=== PATIENT | female | born 1990 | race Caucasian/White ===

== ENCOUNTER 2019-07-19 19:23 | Inpatient (IN) ==
[2019-07-19 19:42] LABS: Microscopic, Urine URINE MICROSCOPIC (MICROSCOPIC)
[2019-07-19 19:47] LABS: Appearance,Urine CLEAR (Clear); Blood, Urine 1+ (Negative); Color,Urine YELLOW (Yellow); Glucose,Urine (UA) Negative (Negative); Ketones,Urine Negative (Negative); Leukocyte Esterase,Urine TRACE (Negative); PH,Urine 5.5 (5.0-8.5); Protein,Urine 2+ (Negative); Specific Gravity, Urine >= 1.030 (1.005-1.030)
[2019-07-19 19:55] LABS: Bilirubin,Urine Negative (Negative)
[2019-07-19 19:59] LABS: Basophils # 0.1 K/mm3 (0-0.2); Basophils % 0.4 % (0.1-2.0); Eosinophils # 0.1 K/mm3 (0.0-0.4); Eosinophils % 0.5 % (0.1-12.0); Hemoglobin 13.9 g/dL (12.2-16.2); Lymphocytes % 4.1 % (10-50); Mean Corpuscular HGB Conc 32.3 g/dL (31.8-35.4); Mean Corpuscular Volume 87.8 fl (81-99); Mean Platelet Volume 9.3 fl (7.4-10.4); Monocytes % 4.1 % (1.7-9.3); Neutrophils # 21.5 K/mm3 (1.8-7.8); Neutrophils % 90.9 % (37.0-80.0); Platelet Count 475 K/mm3 (142-424); Red Cell Distribution Width 13.5 % (11.5-17.5); White Blood Count 23.7 K/mm3 (4.8-10.8)
[2019-07-19 20:06] LABS: Bacteria,Urine Trace /lpf; RBC,Urine Occasional #/hpf (0-3)
--- NOTE | 2019-07-19 20:16 | Emergency Department Note ---
ED Disposition Clinical Impression: PID (acute pelvic inflammatory disease), Tubo-ovarian abscess, Peritonitis, SIRS (systemic inflammatory response syndrome), Hypokalemia Obesity Qualifiers: Obesity type: due to excess calories Obesity classification: adult class 2 (BMI 35 - 39.9) Serious obesity comorbidity presence: with serious comorbidity Body mass index: BMI 38.0-38.9 Qualified Code(s): E66.01 - Morbid (severe) obesity due to excess calories; Z68.38 - Body mass index (BMI) 38.0-38.9, adult Disposition: Admitted As Inpatient Condition on Discharge: Serious Instructions: DI for Acute Abdomen Referrals: Provider,Referral, MD [Primary Care Provider] - - Critical Care Critical Care Time: Yes Attestation: On 07/19/19, the high probability of a clinically significant, sudden or life threatening deterioration of the following system(s) required my full and direct attention, intervention and personal management. The time I documented below is in addition to time spent performing reported procedures but includes the following listed in this critical care notation. Total Critical Care Time: 90 Vital system(s) involved:: Shock (Septic) My critical care processes included: Assessment & monitoring of V/S, Initial and Re-exams, Coordinating Care, Medication Orders and management, Documentation Medical Decision Making - Medical Records Medical records reviewed: Yes: I reviewed the patient's medical records. - Luigi Inquiry Pt receiving controlled substance: No Vital Signs: 07/19/19 19:27 07/19/19 21:52 Temperature 98.6 F Temperature Source Oral Pulse Rate [Right Brachial] 137 H 129 H Respiratory Rate 20 18 Blood Pressure [Right Arm] 101/75 L 125/74 Blood Pressure Mean [Right Arm] 83 91 Blood Pressure Source [Right Arm] Automatic Cuff Automatic Cuff Blood Pressure Position [Right Arm] Sitting Sitting 02 Sat by Pulse Oximetry 97 97 Oxygen Delivery Method Room Air Room Air - Lab Data Lab results reviewed: Yes: I reviewed the patient's lab results. Lab Results 07/19/19 19:37: Urine Color Yellow, Urine Appearance Clear, Urine pH 5.5, Ur Specific Gable >= 1.030, Urine Protein 2+, Urine Glucose (UA) Negative, Urine Ketones Negative, Urine Blood 1+, Urine Nitrate Negative, Urine Bilirubin Negat gt, Urine Urobilinogen 4.0, Ur Leukocyte Esterase Trace, Urine RBC Occasional, Urine WBC 10-20, Ur Squamous Epith Cells 5-10, Urine Bacteria Trace 07/19/19 19:37: Urine HCG, Qual Negative 07/19/19 19:40: WBC 23.7 H*, RBC 4.90, Hgb 13.9, Hct 43.0, MCV 87.8, MCH 28.4, MCHC 32.3, RDW 13.5, Plt Count 475 H, MPV 9.3, Neut % (Auto) 90.9 H, Lymph % (Auto) 4.1 L, Mitchell % (Auto) 4.1, Eos % (Auto) 0.5, Baso % (Auto) 0.4, Neut # (Auto) 21.5 H, Lymph # (Auto) 1.0, Mitchell # (Auto) 1.0, Eos # (Auto) 0.1, Baso # (Auto) 0.1, Total Counted 100, Neutrophils % (Manual) 91 H, Lymphocytes % (Manual) 6 L, Monocytes % (Manual) 3, Platelet Estimate Slight increase, RBC Morphology Normal 07/19/19 20:15: C-Reactive Protein > 12.0 H, Amylase 10 L 07/19/19 20:15: ESR 90 H 07/19/19 20:15: Sodium 132 L, Potassium 2.7 L*, Chloride 94 L, Carbon Dioxide 26, Anion Gap 14.7, BUN 11, Creatinine 1.35 H, Estimated Creat Clear 96, Estimated GFR 46 L, Est GFR ( Amer) 56 L, Glucose 127 H, Calcium 8.6, Total Bilirubin 1.0, AST 44 H, ALT 44, Alkaline Phosphatase 156 H, Total Protein 7.1, Albumin 1.7 L, Globulin 5.4 H, Albumin/Globulin Ratio 0.3 L, Lipase 41 L 07/19/19 21:22: Lactate 1.6 Result diagrams: 07/19/19 19:40 07/19/19 20:15 Orders (Tests/Meds): ED MEDICATIONS Generic Name Dose Route Start Last Admin Trade Name Freq PRN Reason Stop Dose Admin Sodium Chloride 1,000 mls @ 999 mls/hr 07/19/19 19:45 07/19/19 19:43 Sod Chlor 0.9% 1000ml Bag IV 07/19/19 20:45 999 mls/hr .Q1H1M SHAUNA Administration Ertapenem 1 gm/ Sodium 50 mls @ 100 mls/hr 07/19/19 21:15 07/19/19 21:25 Chloride IV 08/02/19 21:14 100 mls/hr Q24H SHAUNA Administration Protocol Sodium Chloride 1,000 mls @ 999 mls/hr 07/19/19 22:00 07/19/19 21:52 Sod Chlor 0.9% 1000ml Bag IV 07/19/19 23:00 999 mls/hr .Q1H1M SHAUNA Administration Clindamycin Phosphate 900 mg/ 106 mls @ 100 mls/hr 07/19/19 23:15 Sodium Chloride IV 08/02/19 23:14 Q8H SHAUNA Protocol Discontinued Medications Generic Name Dose Route Start Last Admin Trade Name Freq PRN Reason Stop Dose Admin Ioversol 75 ml 07/19/19 21:59 07/19/19 22:00 Rad-Optiray 350 100ml Vial IV 07/19/19 22:00 75 ml ONCE ONE Administration Protocol Potassium Chloride 40 meq 07/19/19 20:36 07/19/19 21:28 Klor-Con 20meq Tablet PO 07/19/19 20:37 40 meq ONCE ONE Administration Sodium Chloride 10 ml 07/19/19 21:59 07/19/19 22:00 Rad-Saline Flush 10ml Syringe IV 07/19/19 22:00 10 ml ONCE ONE Administration ORDERS Category Date Time Status CT abdomen pelvis w con Stat Cat Scan 07/19/19 21:[address] abdomen pelvis wo con Stat Cat Scan 07/19/19 19:36 Taken CXR --portable [XR chest portable] Stat Exams 07/19/19 21:41 Taken Anaerobic Culture+Gram Stain Routine Micro 07/19/19 22:50 Received Blood Culture Stat Micro 07/19/19 21:22 Received Genital Culture and Gram Stain Routine Micro 07/19/19 22:50 Received Urine Culture Stat Micro 07/19/19 19:37 Received - Radiology Data #1 Image(s): Chest Image Reviewed: Yes I reviewed the patient's radiology image Preliminary Findings: Normal/NAD - CT Data CT Scan: Abdomen, Pelvis Time Received: 23:[address] Reviewed: Yes: I have viewed the radiologist's interpretation Preliminary Findings: Abnormal (see report ) - ECG Data Tracing #1 Arrhythmias present: sinus tach Ischemic changes: non-specific ST-T wave changes - Physician Consults Physician Consulted: corbin Reason -: Admission Nausea/Vomiting/Diarrhea HPI - General Chief complaint: Abdominal Pain Stated complaint: Sick for a wk,weakness Time Seen by Provider: 07/19/19 19:50 Mode of Arrival: Family Vehicle Source of Information: Patient, Medical Record Limitations: No Limitations Description of Symptoms (Recalled from ER Triage Doc. by RN): Pt states last week she thought she has the flu, reporting n/v for 2 days. She also reports having diarrhea for a couple days that has now resloved. She now reports abd pain and weakness that started today. - History of Present Illness HPI Narrative: 29 wf with no chronic illness or meds - she had iud placed by dr angulo about 2010and no prev pid and last coitus 06/11/19- about 1 week ago ill with gi illness and fever with positive sick family contacts, however she remained ill feeling with dec appetite and dec abd soreness today with vaginal odor and no rash - MD complaint: nausea, abdominal pain Onset (ago): day(s) Associated Abdominal Pain: Yes Location of pain: periumbilical Severity: severe Associated symptoms: loss of appetite - Related Data Home Medications Medication Instructions Recorded Confirmed No Known Home Medications 07/19/19 07/19/19 Allergies Allergy/AdvReac Type Severity Reaction Status Date / Time No Known Allergies Allergy Verified 07/19/19 19:35 [facility] History - Hepatitis A Screen Drug use history?: No High risk sexual behaviors?: No History of sexually transmitted infection?: No Currently employed?: No Childcare worker?: No Do you have indoor plumbing?: Yes Do you have electricity?: Yes Attestation statement:: This patient has been screened for Hepatitis A risk factors. I have reviewed the patient's past medical history: Yes - Social History Smoking Status: Current every day smoker # Packs/Day (cigarettes): 1 Alcohol Intake: never Occupational Status: unemployed Housing: house ROS Obtained: Yes All systems reviewed & no additional complaints - Constitutional Constitutional: Reports as per HPI, Reports fever(s), Reports poor appetite, Reports malaise - Eyes Eyes: Denies change in vision - ENT Ears, Nose, Mouth, and Throat: Denies sore throat - Cardiovascular Cardiovascular: Denies chest pain, Denies dyspnea - Respiratory Respiratory: No cough - Gastrointestinal Gastrointestingal: Reports: as per HPI, abdominal pain, nausea - Genitourinary Female Genitourinary: Denies abnormal vaginal bleeding, Denies vaginal discharge, Reports vaginal odor - Musculoskeletal Musculoskeletal: Denies joint pain, Denies joint swelling - Integumentary/Breasts Skin/Breast: Denies rash - Neurologic Neurologic: Denies focal weakness, Denies headache(s), Denies loss of vision, Denies seizure-like activity Physical Exam - General General appearance: alert, in no apparent distress, obese - Head Head exam: normocephalic - Eye Eye exam: Present: PERRL, EOMI. Absent: scleral icterus - ENT ENT exam: Present: mucous membranes dry - Neck Neck exam: Present: trachea midline. Absent: meningismus - Respiratory Respiratory exam: Present: normal lung sounds bilaterally. Absent: respiratory distress - Cardiovascular Cardiovascular exam: Present: regular rate. Absent: systolic murmur, rubs, gallop - Abdominal Exam Abdominal exam: Present: soft, tenderness. Absent: guarding, rebound, rigidity Abdominal tenderness: Present: suprapubic, moderate - External exam: Present: normal external exam Speculum exam: Present: vaginal discharge, other (iud string ) Bimanual exam: Present: cervical motion tenderness, adnexal tenderness - Extremities Exam Extremities exam: Present: full ROM - Neurological Exam Neurological exam: Present: alert, oriented X3, CN II-XII intact - Psychiatric Psychiatric exam: Present: normal affect - Skin Skin exam: Absent: rash
[2019-07-19 20:32] LABS: Amylase 10 U/L (25-115)
[2019-07-19 20:33] LABS: Albumin Level 1.7 gm/dL (3.4-5.0); Albumin/Globulin Ratio 0.3 (1.1-1.8); Anion Gap 14.7 mEq/L (5-15); C-Reactive Protein > 12.0 mg/dL (0.0-0.9); Calcium 8.6 mg/dL (8.5-10.1); Globulin 5.4 gm/dl (1.3-3.2); Total Protein,Serum 7.1 gm/dL (6.4-8.2)
[2019-07-19 20:42] LABS: Lymphocytes % 6 % (10-50); Monocytes % 3 % (2-9); Neutrophils % 91 % (42-76); RBC Morphology Normal; Total Cells Counted 100
--- NOTE | 2019-07-20 07:26 | Pharmacy Consult Notes ---
[facility] Pharmacy VTE Monitoring - Patient Demographics Admission date: 07/19/19 Report Date: 07/20/19 Time: 07:26 Allergies/Adverse Reactions: Patient Allergies No Known Allergies Allergy (Verified 07/19/19 19:35) Height: 1.6 m Weight: 103.476 kg Patient Problems: Current Active Problems PID (acute pelvic inflammatory disease) (Acute) Tubo-ovarian abscess (Acute) Peritonitis (Acute) SIRS (systemic inflammatory response syndrome) (Acute) Hypokalemia (Acute) Obesity (Acute) - VTE Risk Labs: VTE Related Lab Results Hgb 13.9 g/dL (12.2-16.2) 07/19/19 19:40 Hct 43.0 % (37.0-47.0) 07/19/19 19:40 Plt Count 475 K/mm3 (142-424) H 07/19/19 19:40 BUN 11 mg/dL (7-18) 07/19/19 20:15 Creatinine 1.35 mg/dL (0.55-1.02) H 07/19/19 20:15 Estimated Creat Clear 96 mL/min (50-200) 07/19/19 20:15 Was VTE Risk Assessment Performed: Yes VTE Score: 3 VTE Risk Level: Low Risk Clinical Trial Participant: No - Prophylaxis VTE Prophylaxis Ordered?: Yes Types of VTE Prophylaxis: TEDS Knee High
[2019-07-20 07:34] LABS: Eosinophils % 0.1 % (0.1-12.0)
[2019-07-20 07:38] LABS: Anion Gap 16.9 mEq/L (5-15); Calcium 8.4 mg/dL (8.5-10.1)
[2019-07-20 07:41] LABS: Basophils % 0.2 % (0.1-2.0); Hematocrit 38.4 % (37.0-47.0); INR 1.5 (0.9-1.1); Lymphocytes # 1.3 K/mm3 (0.7-4.5); Lymphocytes % 4.8 % (10-50); Mean Corpuscular HGB Conc 32.6 g/dL (31.8-35.4); Mean Corpuscular Volume 87.4 fl (81-99); Mean Platelet Volume 9.4 fl (7.4-10.4); Monocytes % 3.6 % (1.7-9.3); Neutrophils # 24.3 K/mm3 (1.8-7.8); Neutrophils % 91.3 % (37.0-80.0); Platelet Count 448 K/mm3 (142-424); Prothrombin Time 15.3 seconds (9.4-11.8); Red Cell Distribution Width 13.5 % (11.5-17.5); White Blood Count 26.6 K/mm3 (4.8-10.8)
[2019-07-20 07:44] LABS: Hemoglobin 12.5 g/dL (12.2-16.2)
--- NOTE | 2019-07-20 08:25 | History & Physical Report ---
*Admission Date: 07/19/19 *Chief complaint: Lower abdominal pain. Pelvic abscess possible tubo-ovarian abscess *History of present illness: She is a 29-year-old lady who has a copper IUD in place. She has a 1 week history of lower abdominal pain. She says it is mostly on the left side. She had a fever 1 day she said. She had increasing lower abdominal pain as result of that she came to the ER. CT scan shows multiple loculated areas consistent with tubo-ovarian abscess. There is also significant free fluid possibly related to the inflammation related to this. She denies any new partners. She is . She says that her has had no new partners. She is a smoker and smokes a pack a day. She does not take any medications. [facility] History I have reviewed the patient's past medical history: Yes *Have you ever received a pneumonia vaccine?: No *Have you received a flu vaccine this season?: No Other Surgeries: Yes: - *Social History Educational Level: Attended High School Smoking Status: Current every day smoker Tobacco Type: cigarettes # Packs/Day (cigarettes): 1 Alcohol Intake: never *Occupational Status:: unemployed Housing: house *Travel in the last 8 weeks: None Family Hx:: Anemia, Asthma, Cancer, Coronary Artery Disease, Diabetes, Heart Attack, Hyperlipidemia, Hypertension, Stroke, Thyroid Disorder Review of Systems - Review of Systems Review of systems:: pertinent systems reviewed and negative unless documented below - *Neurologic Denies localized weakness, Denies headache(s), Denies loss of vision, Denies seizure-like activity Meds Home Medications Medication Instructions Recorded Confirmed Type No Known Home Medications 07/19/19 07/19/19 History Allergies Allergy/AdvReac Type Severity Reaction Status Date / Time No Known Allergies Allergy Verified 07/19/19 19:35 Exam Vital signs and Labs for Last 24 Hours: Temp Pulse Resp BP Pulse Ox 98.2 F 95 H 18 129/64 96 07/20/19 08:00 07/20/19 08:00 07/20/19 08:00 07/20/19 08:00 07/20/19 08:00 Laboratory Results - last 24 hr 07/19/19 19:37: Urine Color Yellow, Urine Appearance Clear, Urine pH 5.5, Ur Specific Martin >= 1.030, Urine Protein 2+, Urine Glucose (UA) Negative, Urine Ketones Negative, Urine Blood 1+, Urine Nitrate Negative, Urine Bilirubin Negative, Urine Urobilinogen 4.0, Ur Leukocyte Esterase Trace, Urine RBC Occasional, Urine WBC 10-20, Ur Squamous Epith Cells 5-10, Urine Bacteria Trace 07/19/19 19:37: Urine HCG, Qual Negative 07/19/19 19:40: WBC 23.7 H*, RBC 4.90, Hgb 13.9, Hct 43.0, MCV 87.8, MCH 28.4, MCHC 32.3, RDW 13.5, Plt Count 475 H, MPV 9.3, Neut % (Auto) 90.9 H, Lymph % (Auto) 4.1 L, Morrow % (Auto) 4.1, Eos % (Auto) 0.5, Baso % (Auto) 0.4, Neut # (Auto) 21.5 H, Lymph # (Auto) 1.0, Morrow # (Auto) 1.0, Eos # (Auto) 0.1, Baso # (Auto) 0.1, Total Counted 100, Neutrophils % (Manual) 91 H, Lymphocytes % (Manual) 6 L, Monocytes % (Manual) 3, Platelet Estimate Slight increase, RBC Morphology Normal 07/19/19 20:15: C-Reactive Protein > 12.0 H, Amylase 10 L 07/19/19 20:15: ESR 90 H 07/19/19 20:15: Sodium 132 L, Potassium 2.7 L*, Chloride 94 L, Carbon Dioxide 26, Anion Gap 14.7, BUN 11, Creatinine 1.35 H, Estimated Creat Clear 96, Estimated GFR 46 L, Est GFR ( Amer) 56 L, Glucose 127 H, Calcium 8.6, Total Bilirubin 1.0, AST 44 H, ALT 44, Alkaline Phosphatase 156 H, Total Protein 7.1, Albumin 1.7 L, Globulin 5.4 H, Albumin/Globulin Ratio 0.3 L, Lipase 41 L 07/19/19 21:22: Lactate 1.6 07/20/19 07:03: WBC 26.6 H*, RBC 4.40, Hgb 12.5 D, Hct 38.4, MCV 87.4, MCH 28.5, MCHC 32.6, RDW 13.5, Plt Count 448 H, MPV 9.4, Neut % (Auto) 91.3 H, Lymph % (Auto) 4.8 L, Morrow % (Auto) 3.6, Eos % (Auto) 0.1, Baso % (Auto) 0.2, Neut # (Auto) 24.3 H, Lymph # (Auto) 1.3, Morrow # (Auto) 1.0, Eos # (Auto) 0.0, Baso # (Auto) 0.0 07/20/19 07:03: PT 15.3 H, INR 1.50 H 07/20/19 07:03: Sodium 136, Potassium 2.9 L*, Chloride 97 L, Carbon Dioxide 25, Anion Gap 16.9 H, BUN 15 D, Creatinine 1.19 H, Estimated Creat Clear 113, Estimated GFR 53 L, Est GFR ( Amer) 64, Glucose 116 H, Calcium 8.4 L I & O for Last 24 hours: Intake & Output 07/17/19 07/18/19 07/19/19 07/20/19 11:59 11:59 11:59 11:59 Intake Total 0 / 0 Balance 0 / 0 Weight 228 lb 2.008 oz Microbiology Reports for the Last 24 Hours: Microbiology 07/19/19 22:50 Vaginal - Vaginal Gram Stain - Final 07/19/19 22:50 Vaginal - Vaginal - Final Not Reportable 07/19/19 22:50 Vaginal - Vaginal - Final Not Reportable 07/19/19 22:50 Vaginal - Vaginal - Final Not Reportable 07/19/19 22:50 Vaginal - Vaginal - Final Not Reportable 07/19/19 22:50 Vaginal - Vaginal - Final Not Reportable 07/19/19 22:50 Vaginal - Vaginal - Final Not Reportable 07/19/19 22:50 Vaginal - Vaginal - Final Not Reportable 07/19/19 22:50 Vaginal - Vaginal - Final Not Reportable 07/19/19 22:50 Vaginal - Vaginal - Final Not Reportable 07/19/19 22:50 Vaginal - Vaginal Gram Stain Comment - Final Not Reportable 07/19/19 22:50 Vaginal - Vaginal Wet Prep - Final - Constitutional no acute distress - *Routine HEENT Exam Head: Present: normocephalic Eye: Present: EOMI, PERRL ENT: Present: mucous membranes moist - *Routine Neck Exam Present: supple, full ROM - *Routine Respiratory Exam Absent: accessory muscle use (good air entry bilaterally), wheezes, crackles - *Routine Cardiovascular Exam Present: RRR. Absent: murmur - *Routine Abdominal Exam Present: soft, normoactive bowel sounds, tenderness. Absent: rebound, guarding, mass Comments: She has some lower abdominal tenderness but no rebound and no peritoneal signs. - *Routine Rectal Exam Patient deferred: visual exam, digital exam - *Routine Exam Patient deferred: external exam, groin exam, perineal exam - *Routine Extremities Exam Present: full ROM. Absent: cyanosis, edema, calf tenderness - *Routine Skin Exam Present: intact (good color) - *Routine Neurological Exam Present: alert, oriented X3 - Routine Psychiatric Exam Present: normal affect Assessment and Plan (1) Hypokalemia Current visit: Yes Status: Acute Category: Medical Code(s): E87.6 - Hypokalemia (2) Obesity Current visit: Yes Status: Acute Qualifiers: Obesity type: due to excess calories Obesity classification: adult class 2 (BMI 35 - 39.9) Serious obesity comorbidity presence: with serious comorbidity Body mass index: BMI 38.0-38.9 Qualified Code(s): E66.01 - Morbid (severe) obesity due to excess calories; Z68.38 - Body mass index (BMI) 38.0-38.9, adult Category: Medical Code(s): E66.9 - Obesity, unspecified (3) PID (acute pelvic inflammatory disease) Current visit: Yes Status: Acute Category: Medical Code(s): N73.0 - Acute parametritis and pelvic cellulitis (4) Peritonitis Current visit: Yes Status: Acute Category: Medical Code(s): K65.9 - Peritonitis, unspecified (5) SIRS (systemic inflammatory response syndrome) Current visit: Yes Status: Acute Category: Medical Code(s): R65.10 - Systemic inflammatory response syndrome (SIRS) of non-infectious origin without acute organ dysfunction (6) Tubo-ovarian abscess Current visit: Yes Status: Acute Category: Medical Code(s): N70.93 - Salpingitis and oophoritis, unspecified - Assessment and plan all Dx Assessment and Plan for all problems:: She has been n.p.o. overnight. We will plan to go ahead with a laparoscopic right salpingo-oophorectomy, drainage of her abscesses and pelvic peritoneal lavage. She has been on IV antibiotics since last night as well. We discussed the risks of surgery that includes bleeding, infection, injuries to the bowel and bladder. We discussed the possibility of laparotomy. All questions were answered and consents were signed.
[2019-07-20 09:21] LABS: Lymphocytes % 4 % (10-50); Monocytes % 5 % (2-9); Neutrophils % 91 % (42-76); Total Cells Counted 100
[2019-07-20 09:23] LABS: RBC Morphology Normal
--- NOTE | 2019-07-20 12:01 | Progress Note ---
[facility] Anesthesia Checklist - Patient Identification Patient Identification: Arm Band, Verbal (Name & ) - Structural Data Admitted From: Inpatient Planned Operative Procedure/s: ex lap Consent for Planned Operative Procedure(s) Verified: Yes Verified Documents: History and Physical - NPO Status Verified Time NPO: 00:00 - Additional verifications Patient : No Anesthesia Reactions: No Hx Blood Transfusions: No Blood Transfusion Reaction: No Cephalosporin Allergy: No Previous Colonoscopy: No - Cardiovascular Assessment Heart Sounds: S1 & S2 Pulse Strength: Baseline Pulse Rhythm: Regular Peripheral Edema: No - Airway Assessment C-Spine Mobility Assessed: Yes TMJ Mobility Assessed: Yes Dentition: Good Dentition - Neurological Assessment Level of Consciousness: Awake, Alert, Appropriate Hx Seizures: No Numbness or tingling in extremities: No - Anesthesia Plan Anesthesia Risk discussed: Yes Anesthesia Plan: Verified ASA Class: II Anesthesia Type: General [facility] History I have reviewed the patient's past medical history: Yes *Have you ever received a pneumonia vaccine?: No *Have you received a flu vaccine this season?: No Anesthesia experience/problems:: none Other Surgeries: Yes: - *Social History Educational Level: Attended High School Smoking Status: Current every day smoker Tobacco Type: cigarettes # Packs/Day (cigarettes): 1 Alcohol Intake: never Substance Use Type: other *Occupational Status:: unemployed Housing: house *Travel in the last 8 weeks: None Family Hx:: Anemia, Asthma, Cancer, Coronary Artery Disease, Diabetes, Heart Attack, Hyperlipidemia, Hypertension, Stroke, Thyroid Disorder
--- NOTE | 2019-07-20 13:47 | Electrocardiograph Report ---
APPROVED REPORT Exam: Resting ECG HR:129 bpm ECG Measurements Heart Rate 129 AXES MA 116 P 51 QRSd 78 QRS 57 QT 282 T44 QTc 413 <Conclusion> Sinus tachycardia Possible Left atrial enlargement Borderline ECG Electronically signed by : Stevan Faustin, 07/20/2019 13:46:40
--- NOTE | 2019-07-20 15:51 | Operative Note ---
Date of procedure: 07/20/19 Pre-op Diagnosis:: Pelvic peritoneal abscesses, tubo-ovarian abscess on the right, pelvic inflammatory disease Post-op Diagnosis:: Pelvic peritoneal abscesses, right tubo-ovarian abscess, recto cervical abscess, extensive pelvic peritoneal adhesions. Procedure performed:: Diagnostic laparoscopy, exploratory laparotomy, right salpingo-oophorectomy, extensive lysis of adhesions, drainage of pelvic abscesses, resection of small bowel, Surgeon:: Chemo Holden MD Pediatric Cardiologist(s):: Dr. Decker CATALOGUE ILLUSTRATOR:: Jabier Mercado Anesthesia: GETA Estimated blood loss (mL): 1,200 Clinical Note:: She is a 29-year-old 1 para 1 lady who has a 1+ week history of lower abdominal pain. She has only had fever earlier in the week and has been afebrile overnight. She came into the ER yesterday with lower abdominal pain. CT scan showed multiple abscesses within the pelvis consistent with pelvic inflammatory disease. They also noted a right tubo-ovarian abscess. As result of that we elected to perform a diagnostic laparoscopy with possible laparotomy. We also discussed right salpingo-oophorectomy. Operative findings:: Upon entering the abdominal cavity with the camera it was noted that there were extensive adhesions of omentum to the anterior abdominal wall. There was very l ittle areas that were not adherent and I could not even see the deep pelvis. As result of that we elected to perform a midline lateral laparotomy. On opening up the abdominal cavity the omentum was adherent and firm and rubbery. It was stuck to the anterior abdominal wall. The small bowel and large bowel were also stuck in the deep pelvis. There was fluid in the pelvis consistent with inflammation. On examination on the right side the right adnexa was enlarged and on blunt dissection a large 4 to 5 cm abscess drained. It was extremely smelly pus. Also posterior to the cervix and uterus the rectosigmoid colon was adherent here and upon bluntly dissecting this from the posterior cervix another abscess was noted. There was also another collection of fluid in the right lower quadrant superior to the uterus. On careful examination of the small bowel it was noted that there were 2 small rents in the small bowel after having dissected this off from the pelvic sidewall and the rest of the small bowel. We have followed the small bowel out completely. We elected to resect this small area approximately 6 inches long. It was in the distal small bowel. Approximately 6 inches from the ileocecal junction. There were also extensive areas of inflammation throughout the pelvis as well as the right adnexa. The right tube and ovary actually looked normal although there were adhesions and inflammation on the right ovary. The right tube appeared normal. Operative note:: She was taken the operating room where general anesthesia was found be adequate. She was prepped and draped in normal sterile fashion in the semilithotomy position. Weighted speculum was placed in the vagina and the anterior lip of the cervix was grasped with a tenaculum. It was noted on CT scan that the copper IUD was in the lower uterine segment and cervical area. I grasped the strings of the IUD and remove the IUD. In doing so 1 of the arms broke off and I could not retrieve this. I elected not to force the issue at that point in time. I then changed gloves and injected approximately 10 cc of 0.5% ropivacaine around the umbilicus. I made a small incision within the umbilicus and inserted a Veress needle into the abdominal cavity. The abdominal cavity was difficult to insufflate likely because of the adhesions. I then elected to use an 11 mm trocar and entered directly into the abdominal cavity. Upon entering I was above the omentum and there were extensive adhesions throughout the entire pelvis. As result of this I elected to abandon this procedure and move onto exploratory laparotomy. I asked Dr. Decker to help me. The patient was reprepped and redraped in the normal sterile fashion in the supine position Marinelli catheter is in the bladder. We made a midline incision through to the underlying layer fascia and opened the fascia in the midline. We then grasped the peritoneum and opened this up with Metzenbaum scissors. This incision was then extended superiorly and inferiorly with both cautery and Metzenbaum scissors. We had a good visualization of the bladder. Upon entering the abdominal cavity was noted there were extensive adhesions of small bowel and omentum all along the pelvic sidewalls all along the anterior abdominal wall. These were taken down with blunt dissection. We used our fingers. We then inserted an O'Adam-O'Lugo retractor and packed away the bowel with warm moist packs. Upon inspection on the right side it was noted that there was extensive adhesions of the ovary and tube to that side. Upon blunt dissection I opened up into an abscess cavity. This drained. We then rinsed the pelvis. After freeing up the ovary I then grasped the right round ligament and opened this up. This was then suture-ligated. I then clamped across the utero-ovarian ligament and cut this away. I then clamped across the infundibulopelvic ligament and this was clamped cut and suture-ligated doubly. There was a small amount of bleeding at the utero ovarian junction and sutures were used here to obtain excellent hemostasis. We then further inspected the pelvis and once again checked for hemostasis. I used blunt dissection to dissect away the posterior aspect of the rectosigmoid colon from the posterior cervix and the deep pelvis. Upon doing this a large amount of pus drained. We then will further rinsed the pelvis. We then inspected the bowel and found that there was 2 small rents in the bowel [id number]. They are approximately 1 inch in size. As result of this we elected to resect this piece of small bowel approximately 6 inches long. We used an Endo stapler to remove this section of bowel. The intervening mesentery was clamped cut and suture-ligated. Dr. Decker then grasped the ends of the bassam and remove the staple lines. He then had sutured the closure of the small bowel in 3 layers. The mucosal layer was closed with a running double-ended suture. He checked for patency of the small bowel. We then once again assured hemostasis. We rinsed the pelvis well with saline. There was no other evidence of abscesses. I then placed a CHAN drain in the deep pelvis and passed the tubing through the left lower quadrant. This was then attached to the bulb suction. The fascia was then closed using running #2 Novafil suture. We then rinsed the subcutaneous tissues well with warm saline. I elected closed this with 2 layers of running 2-0 Monocryl suture. The skin was closed with bassam. She tolerated seizure well and was taken to the recovery room in stable condition. All sponge, instrument and needle counts were correct. The estimated blood loss was approximately 1200 cc. She was febrile throughout the case and initially was 101.3 but was 100.8 upon exiting the operating room. We will continue to monitor her for worsening sepsis. We will make sure that she gets adequate fluids. She did receive approximately 3 L of fluid during the surgery. Condition: stable Disposition: PACU Specimens:: Small bowel resection, right salpingo-oophorectomy, aerobic and anaerobic cultures Complications:: Small bowel perforation
--- NOTE | 2019-07-20 16:07 | Progress Note ---
[facility] Anesthesia Record Part I Intake, IV Amount: 2,400 Estimated blood loss (mL): 1,200 Urine output (mL): 15 Blood Products used (#): none Blood Pressure: 124/66 SaO2: 96 Pulse Rate: 126 Respiratory Rate: 12 Temperature: 96.9 F Patient is:: Awake, Stable Stable to PACU at:: 15:56
[2019-07-20 16:22] LABS: Basophils # 0.1 K/mm3 (0-0.2); Basophils % 0.2 % (0.1-2.0); Eosinophils # 0.3 K/mm3 (0.0-0.4); Eosinophils % 0.8 % (0.1-12.0); Hematocrit 40.8 % (37.0-47.0); Hemoglobin 13.1 g/dL (12.2-16.2); Lymphocytes # 1.1 K/mm3 (0.7-4.5); Lymphocytes % 3.3 % (10-50); Mean Corpuscular HGB Conc 32.2 g/dL (31.8-35.4); Mean Corpuscular Volume 89.5 fl (81-99); Monocytes # 0.9 K/mm3 (0.1-1.0); Monocytes % 2.6 % (1.7-9.3); Neutrophils # 30.6 K/mm3 (1.8-7.8); Neutrophils % 93.1 % (37.0-80.0); Platelet Count 545 K/mm3 (142-424); Red Blood Count 4.56 M/mm3 (4.20-5.40); Red Cell Distribution Width 13.5 % (11.5-17.5)
[2019-07-20 16:30] LABS: White Blood Count 32.1 K/mm3 (4.8-10.8)
[2019-07-20 16:31] LABS: Anion Gap 14.6 mEq/L (5-15); Calcium 8.2 mg/dL (8.5-10.1)
[2019-07-20 16:36] LABS: Lymphocytes % 3 % (10-50); Monocytes % 3 % (2-9); Neutrophils % 91 % (42-76); Total Cells Counted 100
[2019-07-20 16:41] LABS: INR 1.43 (0.9-1.1); Prothrombin Time 14.6 seconds (9.4-11.8)
[2019-07-20 16:42] LABS: Activated Partial Thrombo Time 38.4 seconds (23.6-34.0)
[2019-07-21 06:41] LABS: Basophils % 0.1 % (0.1-2.0); Lymphocytes # 1.1 K/mm3 (0.7-4.5); Lymphocytes % 3.8 % (10-50); Neutrophils # 27.9 K/mm3 (1.8-7.8); Neutrophils % 93.3 % (37.0-80.0); Red Blood Count 3.51 M/mm3 (4.20-5.40)
[2019-07-21 06:45] LABS: Anion Gap 11.1 mEq/L (5-15); Calcium 7.8 mg/dL (8.5-10.1)
--- NOTE | 2019-07-21 06:46 | Progress Note ---
[facility] Anesthesia Record Part II Discharge Time: 16:26 Destination: Medical Surgical Department PACU nurse assessment reviewed?: Yes Patient Condition:: Fair Anesthesia Complications:: None Swallowing reflex intact?: Yes Cyanosis?: No Blood Pressure: 122/74 Pulse Rate: 96 Temperature: 97.4 F Mental Status: Alert & Oriented Pain level:: 0 Nausea and/or vomitting:: None Intake, IV Amount: 2,000
[2019-07-21 06:51] LABS: Hematocrit 31.8 % (37.0-47.0); Mean Corpuscular HGB Conc 31.5 g/dL (31.8-35.4); Mean Corpuscular Volume 90.6 fl (81-99); Mean Platelet Volume 9.4 fl (7.4-10.4); Monocytes # 0.9 K/mm3 (0.1-1.0); Monocytes % 2.9 % (1.7-9.3); Platelet Count 430 K/mm3 (142-424); Red Cell Distribution Width 13.8 % (11.5-17.5)
--- NOTE | 2019-07-21 07:02 | Progress Note ---
Subjective Patient reports: feels better Exam Vital signs and Labs for Last 24 Hours: Temp Pulse Resp BP Pulse Ox 97.4 F L 96 H 18 122/74 97 07/21/19 06:45 07/21/19 06:45 07/21/19 06:00 07/21/19 06:45 07/21/19 06:00 Laboratory Results - last 24 hr 07/20/19 07:03: WBC 26.6 H*, RBC 4.40, Hgb 12.5 D, Hct 38.4, MCV 87.4, MCH 28.5, MCHC 32.6, RDW 13.5, Plt Count 448 H, MPV 9.4, Neut % (Auto) 91.3 H, Lymph % (Auto) 4.8 L, [place] % (Auto) 3.6, Eos % (Auto) 0.1, Baso % (Auto) 0.2, Neut # (Auto) 24.3 H, Lymph # (Auto) 1.3, [place] # (Auto) 1.0, Eos # (Auto) 0.0, Baso # (Auto) 0.0, Total Counted 100, Neutrophils % (Manual) 91 H, Lymphocytes % (Manual) 4 L, Monocytes % (Manual) 5, Platelet Estimate Slight increase, RBC Morphology Normal 07/20/19 07:03: PT 15.3 H, INR 1.50 H 07/20/19 07:03: Sodium 136, Potassium 2.9 L*, Chloride 97 L, Carbon Dioxide 25, Anion Gap 16.9 H, BUN 15 D, Creatinine 1.19 H, Estimated Creat Clear 113, Estimated GFR 53 L, Est GFR ( Amer) 64, Glucose 116 H, Calcium 8.4 L 07/20/19 13:20: Urine Color Yellow, Urine Appearance Clear, Urine pH 6.0, Ur Specific [place] >= 1.030, Urine Protein 1+, Urine Glucose (UA) Negative, Urine Ketones Negative, Urine Blood 2+, Urine Nitrate Negative, Urine Bilirubin Negative, Urine Urobilinogen 1.0, Ur Leukocyte Esterase Negative, Urine RBC Occasional, Urine WBC 3-5, Ur Squamous Epith Cells 5-10, Urine Bacteria Trace 07/20/19 16:11: WBC 32.1 H*, RBC 4.56, Hgb 13.1, Hct 40.8, MCV 89.5, MCH 28.8, MCHC 32.2, RDW 13.5, Plt Count 545 H, Neut % (Auto) 93.1 H, Lymph % (Auto) 3.3 L , [place] % (Auto) 2.6, Eos % (Auto) 0.8, Baso % (Auto) 0.2, Neut # (Auto) 30.6 H, Lymph # (Auto) 1.1, [place] # (Auto) 0.9, Eos # (Auto) 0.3, Baso # (Auto) 0.1, T[place] l Counted 100, Neutrophils % (Manual) 91 H, Band Neutrophils % 3.0, Lymphocytes % (Manual) 3 L, Monocytes % (Manual) 3, Platelet Estimate Slight increase, Poikilocytosis 1+, Acanthocytes (Spur) 1+ 07/20/19 16:11: Sodium 137, Potassium 3.6 D, Chloride 99, Carbon Dioxide 27, Anion Gap 14.6, BUN 20 H D, Creatinine 1.62 H D, Estimated Creat Clear 83, Estimated GFR 37 L, Est GFR ( Amer) 45 L D, Glucose 128 H, Calcium 8.2 L 07/20/19 16:11: Total Bilirubin 1.0 07/20/19 16:26: PT 14.6 H, INR 1.43 H, APTT 38.4 H 07/20/19 16:50: Lactate 3.2 H 07/20/19 21:07: Lactate 1.1 07/21/19 06:08: WBC 30.0 H*, RBC 3.51 L, Hgb 10.0 L D, Hct 31.8 L, MCV 90.6, MCH 28.6, MCHC 31.5 L, RDW 13.8, Plt Count 430 H, MPV 9.4, Neut % (Auto) 93.3 H, Lymph % (Auto) 3.8 L, [place] % (Auto) 2.9, Eos % (Auto) 0.0 L, Baso % (Auto) 0.1, Neut # (Auto) 27.9 H, Lymph # (Auto) 1.1, [place] # (Auto) 0.9, Eos # (Auto) 0.0, Baso # (Auto) 0.0 07/21/19 06:08: Sodium 139, Potassium 3.1 L, Chloride 101, Carbon Dioxide 30, Anion Gap 11.1, BUN 29 H D, Creatinine 1.52 H, Estimated Creat Clear 45, Estimated GFR 40 L, Est GFR ( Amer) 49 L, Glucose 106, Calcium 7.8 L I & O for Last 24 hours: Intake & Output 07/18/19 07/19/19 07/20/19 07/21/19 11:59 11:59 11:59 11:59 Intake Total 0 / 0 8446 / 8446 Output Total 2190 / 2190 Balance 0 / 0 6256 / 6256 Weight 228 lb 2.008 oz 241 lb 6 oz Microbiology Reports for the Last 24 Hours: Microbiology 07/20/19 13:33 Peritoneal Fluid - Peritoneal Gram Stain - Final 07/19/19 19:37 Urine,Clean Catch Urine Culture - Preliminary - Constitutional no acute distress - *Routine Respiratory Exam Absent: respiratory distress - *Routine Cardiovascular Exam Present: RRR - *Routine Abdominal Exam Present: soft Comments: dressing in place Progress Note: A&P (1) Hypokalemia Status: Acute Current Visit: Yes (2) Obesity Status: Acute Current Visit: Yes (3) PID (acute pelvic inflammatory disease) Status: Acute Current Visit: Yes (4) Peritonitis Status: Acute Current Visit: Yes (5) SIRS (systemic inflammatory response syndrome) Status: Acute Current Visit: Yes (6) Tubo-ovarian abscess Status: Acute Current Visit: Yes (7) S/P small bowel resection Status: Acute Assessment and plan: Currently doing fairly well on POD1. The patient had an exceptionally hostile abdomen secondary to pelvic inflammatory disease/right tubo-ovarian abscess. A small portion of her ileum was resected and a primary anastomosis was completed. The anastomosis is at an increased risk of leak and/or stricture secondary to the quality of tissue. Close ongoing observation by both gynecology and general surgery warranted. The patient understands that there will be a low threshold for reoperation for washout and possible revision of anastomosis or ostomy. Continue nasogastric decompression for now Continue IV antibiotics for now Increase ambulation Current Visit: Yes
[2019-07-21 08:47] LABS: Lymphocytes % 2 % (10-50); Monocytes % 1 % (2-9); Neutrophils % 97 % (42-76); Total Cells Counted 100
[2019-07-21 08:49] LABS: Hypochromasia 1+
--- NOTE | 2019-07-21 08:55 | Progress Note ---
Internal Medicine - PN: Subj *Date: 07/21/19 *Time: 08:51 Interval history: She is postop day 1 from her laparotomy for tubo-ovarian abscess and deep pelvis abscess. She is doing well. She is just taking Toradol for pain. She has not had any fever overnight. Her white blood cell count has dropped from 32,00o to 30,000. Her urine output is slightly decreased at 30 to 50 cc an hour. We will increase her IV fluids. Her creatinine and BUN are also slightly increased. Hemoglobin is stabilized at 10.0. She denies any shortness of breath, chest pain or calf tenderness. Exam Vital signs and Labs for Last 24 Hours: Temp Pulse Resp BP Pulse Ox 98.5 F 96 H 18 122/74 97 07/21/19 07:56 07/21/19 06:45 07/21/19 06:00 07/21/19 06:45 07/21/19 06:00 Laboratory Results - last 24 hr 07/19/19 19:37: Urine Color Yellow, Urine Appearance Clear, Urine pH 5.5, Ur Specific [place] >= 1.030, Urine Protein 2+, Urine Glucose (UA) Negative, Urine Ketones Negative, Urine Blood 1+, Urine Nitrate Negative, Urine Bilirubin Negative, Urine Urobilinogen 4.0, Ur Leukocyte Esterase Trace, Urine RBC Occasional, Urine WBC 10-20, Ur Squamous Epith Cells 5-10, Urine Bacteria Trace 07/20/19 07:03: Total Counted 100, Neutrophils % (Manual) 91 H, Lymphocytes % (Manual) 4 L, Monocytes % (Manual) 5, Platelet Estimate Slight increase, RBC Morphology Normal 07/20/19 13:20: Urine Color Yellow, Urine Appearance Clear, Urine pH 6.0, Ur Specific [place] >= 1.030, Urine Protein 1+, Urine Glucose (UA) Negative, Urine Ketones Negative, Urine Blood 2+, Urine Nitrate Negative, Urine Bilirubin Negative, Urine Urobilinogen 1.0, Ur Leukocyte Esterase Negative, Urine RBC Occasional, Urine WBC 3-5, Ur Squamous Epith Cells 5-10, Urine Bacteria Trace 07/20/19 16:11: WBC 32.1 H*, RBC 4.56, Hgb 13.1, Hct 40.8, MCV 89.5, MCH 28.8, MCHC 32.2, RDW 13.5, Plt Count 545 H, Neut % (Auto) 93.1 H, Lymph % (Auto) 3.3 L , [place] % (Auto) 2.6, Eos % (Auto) 0.8, Baso % (Auto) 0.2, Neut # (Auto) 30.6 H, Lymph # (Auto) 1.1, [place] # (Auto) 0.9, Eos # (Auto) 0.3, Baso # (Auto) 0.1, Total Counted 100, Neutrophils % (Manual) 91 H, Band Neutrophils % 3.0, Lymphocytes % (Manual) 3 L, Monocytes % (Manual) 3, Platelet Estimate Slight increase, Poikilocytosis 1+, Acanthocytes (Spur) 1+ 07/20/19 16:11: Sodium 137, Potassium 3.6 D, Chloride 99, Carbon Dioxide 27, Anion Gap 14.6, BUN 20 H D, Creatinine 1.62 H D, Estimated Creat Clear 83, Estimated GFR 37 L, Est GFR ( Amer) 45 L D, Glucose 128 H, Calcium 8.2 L 07/20/19 16:11: Total Bilirubin 1.0 07/20/19 16:26: PT 14.6 H, INR 1.43 H, APTT 38.4 H 07/20/19 16:50: Lactate 3.2 H 07/20/19 21:07: Lactate 1.1 07/21/19 06:08: WBC 30.0 H*, RBC 3.51 L, Hgb 10.0 L D, Hct 31.8 L, MCV 90.6, MCH 28.6, MCHC 31.5 L, RDW 13.8, Plt Count 430 H, MPV 9.4, Neut % (Auto) 93.3 H, Lymph % (Auto) 3.8 L, [place] % (Auto) 2.9, Eos % (Auto) 0.0 L, Baso % (Auto) 0.1, Neut # (Auto) 27.9 H, Lymph # (Auto) 1.1, [place] # (Auto) 0.9, Eos # (Auto) 0.0, Baso # (Auto) 0.0, Total Counted 100, Neutrophils % (Manual) 97 H, Lymphocytes % (Manual) 2 L, Monocytes % (Manual) 1 L, Platelet Estimate Slight decrease, Hypochromasia 1+ 07/21/19 06:08: Sodium 139, Potassium 3.1 L, Chloride 101, Carbon Dioxide 30, Anion Gap 11.1, BUN 29 H D, Creatinine 1.52 H, Estimated Creat Clear 45, Estimated GFR 40 L, Est GFR ( Amer) 49 L, Glucose 106, Calcium 7.8 L I & O for Last 24 hours: Intake & Output 07/18/19 07/19/19 07/20/19 07/21/19 11:59 11:59 11:59 11:59 Intake Total 0 / 0 8446 / 8446 Output Total 2220 / 2220 Balance 0 / 0 6226 / 6226 Weight 228 lb 2.008 oz 241 lb 6 oz Microbiology Reports for the Last 24 Hours: Microbiology 07/19/19 22:50 Vaginal - Vaginal Gram Stain - Final 07/19/19 22:50 Vaginal - Vaginal Genital Culture - Preliminary Gram Negative Rods 07/19/19 19:37 Urine,Clean Catch Urine Culture - Preliminary Gram Negative Rods 07/20/19 13:33 Peritoneal Fluid - Peritoneal Gram Stain - Final - Constitutional no acute distress - *Routine HEENT Exam Head: Present: normocephalic Eye: Present: EOMI, PERRL ENT: Present: mucous membranes moist - *Routine Respiratory Exam Absent: accessory muscle use (good air entry bilaterally), wheezes, crackles Comments: She has good air entry bilaterally. - *Routine Cardiovascular Exam Present: RRR. Absent: murmur - *Routine Abdominal Exam Present: soft, normoactive bowel sounds. Absent: tenderness, rebound, guarding, mass Comments: She does have some bowel sounds. The incision is clean and dry. Her abdomen is nondistended. Assessment and Plan (1) Hypokalemia Current visit: Yes Status: Acute Category: Medical Code(s): E87.6 - Hypokalemia (2) Obesity Current visit: Yes Status: Acute Qualifiers: Obesity type: due to excess calories Obesity classification: adult class 2 (BMI 35 - 39.9) Serious obesity comorbidity presence: with serious comorbidity Body mass index: BMI 38.0-38.9 Qualified Code(s): E66.01 - Morbid (severe) obesity due to excess calories; Z68.38 - Body mass index (BMI) 38.0-38.9, adult Category: Medical Code(s): E66.9 - Obesity, unspecified (3) PID (acute pelvic inflammatory disease) Current visit: Yes Status: Acute Category: Medical Code(s): N73.0 - Acute parametritis and pelvic cellulitis (4) Peritonitis Current visit: Yes Status: Acute Category: Medical Code(s): K65.9 - Peritonitis, unspecified (5) SIRS (systemic inflammatory response syndrome) Current visit: Yes Status: Acute Category: Medical Code(s): R65.10 - Systemic inflammatory response syndrome (SIRS) of non-infectious origin without acute organ dysfunction (6) Tubo-ovarian abscess Current visit: Yes Status: Acute Category: Medical Code(s): N70.93 - Salpingitis and oophoritis, unspecified (7) S/P small bowel resection Current visit: Yes Status: Acute Category: Surgical Code(s): Z90.49 - Acquired absence of other specified parts of digestive tract - Assessment and plan all Dx Assessment and Plan for all problems:: We will continue with her NG for now. We will also continue with her CHAN drain. It seems to be draining less and the fluid is just somewhat serosanguineous. It has been draining 30 to 50 cc/h. She has been receiving 125 cc an hour of fluids and we will increase this to 250 cc an hour given her decreased urine output. I think she still third spacing some fluid. I believe that she was quite dry prior to surgery as well. We will repeat all her blood work again in the morning. We will continue with the antibiotics.
[2019-07-21 17:01] LABS: Microscopic, Urine URINE MICROSCOPIC (MICROSCOPIC)
[2019-07-21 17:16] LABS: Appearance,Urine CLOUDY (Clear); Blood, Urine TRACE-I (Negative); Color,Urine YELLOW (Yellow); Glucose,Urine (UA) Negative (Negative); Ketones,Urine Negative (Negative); Leukocyte Esterase,Urine Negative (Negative); PH,Urine 5.5 (5.0-8.5); Protein,Urine TRACE (Negative); Specific Gravity, Urine >= 1.030 (1.005-1.030)
[2019-07-21 17:23] LABS: Bilirubin,Urine Negative (Negative)
[2019-07-21 17:24] LABS: Amorphous Sediment,Urine 4+ /lpf
[2019-07-22 06:20] LABS: Basophils % 0.1 % (0.1-2.0); Lymphocytes # 1.3 K/mm3 (0.7-4.5)
[2019-07-22 06:26] LABS: Eosinophils # 0.1 K/mm3 (0.0-0.4); Eosinophils % 0.3 % (0.1-12.0); Lymphocytes % 6.3 % (10-50); Mean Corpuscular HGB Conc 31.7 g/dL (31.8-35.4); Mean Corpuscular Volume 89.5 fl (81-99); Mean Platelet Volume 9.8 fl (7.4-10.4); Monocytes # 0.8 K/mm3 (0.1-1.0); Monocytes % 3.9 % (1.7-9.3); Neutrophils # 18.2 K/mm3 (1.8-7.8); Neutrophils % 89.5 % (37.0-80.0); Platelet Count 411 K/mm3 (142-424); Red Blood Count 3.02 M/mm3 (4.20-5.40); Red Cell Distribution Width 13.8 % (11.5-17.5); White Blood Count 20.3 K/mm3 (4.8-10.8)
[2019-07-22 06:27] LABS: Hemoglobin 8.5 g/dL (12.2-16.2)
[2019-07-22 06:50] LABS: Anion Gap 12.9 mEq/L (5-15); Calcium 7.5 mg/dL (8.5-10.1)
[2019-07-22 06:53] LABS: Lymphocytes % 8 % (10-50); Monocytes % 5 % (2-9); Neutrophils % 87 % (42-76); Total Cells Counted 100
[2019-07-22 06:54] LABS: RBC Morphology Normal
--- NOTE | 2019-07-22 09:19 | Progress Note ---
Subjective Narrative: Patient without significant complaints other than discomfort from nasogastric tube. Marginal urinary output yesterday. Improved with increased IV fluids. Has had 575 mL of urine out over the past 8 or 9 hours. CHAN output serous. She does have appreciable nasogastric tube output but she is taking ice chips. Exam Vital signs and Labs for Last 24 Hours: Temp Pulse Resp BP Pulse Ox 98.5 F 107 H 24 116/62 96 07/22/19 07:14 07/22/19 06:00 07/22/19 04:00 07/22/19 06:00 07/22/19 06:00 Laboratory Results - last 24 hr 07/21/19 16:44: Urine Color Yellow, Urine Appearance Cloudy, Urine pH 5.5, Ur Specific [place] >= 1.030, Urine Protein Trace, Urine Glucose (UA) Negative, Urine Ketones Negative, Urine Blood Trace-i, Urine Nitrate Negative, Urine Bilirubin Negative, Urine Urobilinogen 4.0, Ur Leukocyte Esterase Negative, Urine RBC 3-5, Amorphous Sediment 4+, Hyaline Casts 3-5 07/22/19 05:30: WBC 20.3 H* D, RBC 3.02 L, Hgb 8.5 L D, Hct 27.0 L, MCV 89.5, MCH 28.3, MCHC 31.7 L, RDW 13.8, Plt Count 411, MPV 9.8, Neut % (Auto) 89.5 H, Lymph % (Auto) 6.3 L, [place] % (Auto) 3.9, Eos % (Auto) 0.3, Baso % (Auto) 0.1, Neut # (Auto) 18.2 H, Lymph # (Auto) 1.3, [place] # (Auto) 0.8, Eos # (Auto) 0.1, Baso # (Auto) 0.0, Total Counted 100, Neutrophils % (Manual) 87 H, Lymphocytes % (Manual) 8 L, Monocytes % (Manual) 5, Platelet Estimate Normal, RBC Morphology Normal 07/22/19 05:30: Sodium 141, Potassium 3.9 D, Chloride 104, Carbon Dioxide 28, Anion Gap 12.9, BUN 29 H, Creatinine 1.01 D, Estimated Creat Clear 67, Estimated GFR 64, Est GFR ( Amer) 78 D, Glucose 81 D, Calcium 7.5 L I & O for Last 24 hours: Intake & Output 07/19/19 07/20/19 07/21/19 07/22/19 11:59 11:59 11:59 11:59 Intake Total 0 / 0 8446 / 8446 3995 / 3995 Output Total 2220 / 2220 3055 / 3055 Balance 0 / 0 6226 / 6226 940 / 940 Weight 228 lb 2.008 oz 241 lb 6 oz 241 lb 1 oz Microbiology Reports for the Last 24 Hours: Microbiology 07/19/19 22:50 Vaginal - Vaginal Gram Stain - Final 07/19/19 22:50 Vaginal - Vaginal Genital Culture - Preliminary Escherichia coli 07/19/19 19:37 Urine,Clean Catch Urine Culture - Final Escherichia coli 07/20/19 13:33 Peritoneal Fluid - Peritoneal Gram Stain - Final 07/20/19 13:33 Peritoneal Fluid - Peritoneal Body Fluid Culture - Prelimi nary NO GROWTH AFTER 24 HOURS 07/19/19 21:22 Blood Blood Culture - Preliminary NO GROWTH AFTER 48 HOURS 07/19/19 21:22 Blood Blood Culture - Preliminary NO GROWTH AFTER 48 HOURS - *Routine Abdominal Exam Present: soft Progress Note: A&P (1) Hypokalemia Status: Acute Current Visit: Yes (2) Obesity Status: Acute Current Visit: Yes (3) PID (acute pelvic inflammatory disease) Status: Acute Current Visit: Yes (4) Peritonitis Status: Acute Current Visit: Yes (5) SIRS (systemic inflammatory response syndrome) Status: Acute Current Visit: Yes (6) Tubo-ovarian abscess Status: Acute Current Visit: Yes (7) S/P small bowel resection Status: Acute Current Visit: Yes Assessment and Plan for All Diagnoses:: Continue n.p.o. for now with liberal use of IV fluid hydration due to systemic inflammatory response and third spacing. Maintain nasogastric decompression. Will check x-ray for confirmed appropriate placement. Monitor CHAN output. Continue IV antibiotics.
--- NOTE | 2019-07-22 11:07 | Progress Note ---
Internal Medicine - PN: Subj *Date: 07/22/19 *Time: 11:03 Interval history: She is doing much better this morning. She denies any major pain. She is not taking any pain medicine. Her urine output has significantly improved. She had 500 cc output overnight and at this point in time there was another 350 cc of urine. Urinalysis was basically normal. There were some casts. Her white count has gone down from 30,000-20,000. Her hemoglobin is slightly low at 8.5. Her potassium has improved with 20 mEq of potassium in the bag. We have given her copious fluids. She denies any shortness of breath, chest pain or calf tenderness. Exam Vital signs and Labs for Last 24 Hours: Temp Pulse Resp BP Pulse Ox 98.5 F 107 H 18 127/66 95 07/22/19 07:14 07/22/19 10:00 07/22/19 10:00 07/22/19 10:00 07/22/19 10:00 Laboratory Results - last 24 hr 07/21/19 16:44: Urine Color Yellow, Urine Appearance Cloudy, Urine pH 5.5, Ur Specific [place] >= 1.030, Urine Protein Trace, Urine Glucose (UA) Negative, Ur ine Ketones Negative, Urine Blood Trace-i, Urine Nitrate Negative, Urine Bilirubin Negative, Urine Urobilinogen 4.0, Ur Leukocyte Esterase Negative, Urine RBC 3-5, Amorphous Sediment 4+, Hyaline Casts 3-5 07/22/19 05:30: WBC 20.3 H* D, RBC 3.02 L, Hgb 8.5 L D, Hct 27.0 L, MCV 89.5, MCH 28.3, MCHC 31.7 L, RDW 13.8, Plt Count 411, MPV 9.8, Neut % (Auto) 89.5 H, Lymph % (Auto) 6.3 L, [place] % (Auto) 3.9, Eos % (Auto) 0.3, Baso % (Auto) 0.1, Neut # (Auto) 18.2 H, Lymph # (Auto) 1.3, [place] # (Auto) 0.8, Eos # (Auto) 0.1, Baso # (Auto) 0.0, Total Counted 100, Neutrophils % (Manual) 87 H, Lymphocytes % (Manual) 8 L, Monocytes % (Manual) 5, Platelet Estimate Normal, RBC Morphology Normal 07/22/19 05:30: Sodium 141, Potassium 3.9 D, Chloride 104, Carbon Dioxide 28, Anion Gap 12.9, BUN 29 H, Creatinine 1.01 D, Estimated Creat Clear 67, Estimated GFR 64, Est GFR ( Amer) 78 D, Glucose 81 D, Calcium 7.5 L I & O for Last 24 hours: Intake & Output 07/19/19 07/20/19 07/21/19 07/22/19 11:59 11:59 11:59 11:59 Intake Total 0 / 0 8446 / 8446 3995 / 3995 Output Total 2220 / 2220 2505 / 2505 Balance 0 / 0 6226 / 6226 1490 / 1490 Weight 228 lb 2.008 oz 241 lb 6 oz 241 lb 1 oz Microbiology Reports for the Last 24 Hours: Microbiology 07/19/19 22:50 Vaginal - Vaginal Gram Stain - Final 07/19/19 22:50 Vaginal - Vaginal Genital Culture - Preliminary Escherichia coli 07/19/19 19:37 Urine,Clean Catch Urine Culture - Final Escherichia coli 07/20/19 13:33 Peritoneal Fluid - Peritoneal Gram Stain - Final 07/20/19 13:33 Peritoneal Fluid - Peritoneal Body Fluid Culture - Preliminary NO GROWTH AFTER 24 HOURS 07/19/19 21:22 Blood Blood Culture - Preliminary NO GROWTH AFTER 48 HOURS 07/19/19 21:22 Blood Blood Culture - Preliminary NO GROWTH AFTER 48 HOURS - Constitutional no acute distress, obese - *Routine HEENT Exam Head: Present: normocephalic Eye: Present: EOMI, PERRL ENT: Present: mucous membranes moist - *Routine Neck Exam Present: supple, full ROM - *Routine Respiratory Exam Absent: accessory muscle use (good air entry bilaterally), wheezes, crackles Comments: She has good air entry bilaterally. - *Routine Cardiovascular Exam Present: RRR. Absent: murmur - *Routine Abdominal Exam Present: soft, normoactive bowel sounds, surgical scars, wound, drain (Her CHAN drain output has decreased significantly.). Absent: tenderness, rebound, guarding, mass - *Routine Extremities Exam Present: full ROM. Absent: cyanosis, edema, calf tenderness Assessment and Plan (1) Hypokalemia Current visit: Yes Status: Acute Category: Medical Code(s): E87.6 - Hypokalemia (2) Obesity Current visit: Yes Status: Acute Qualifiers: Obesity type: due to excess calories Obesity classification: adult class 2 (BMI 35 - 39.9) Serious obesity comorbidity presence: with serious comorbidity Body mass index: BMI 38.0-38.9 Qualified Code(s): E66.01 - Morbid (severe) obesity due to excess calories; Z68.38 - Body mass index (BMI) 38.0-38.9, adult Category: Medical Code(s): E66.9 - Obesity, unspecified (3) PID (acute pelvic inflammatory disease) Current visit: Yes Status: Acute Category: Medical Code(s): N73.0 - Acute parametritis and pelvic cellulitis (4) Peritonitis Current visit: Yes Status: Acute Category: Medical Code(s): K65.9 - Peritonitis, unspecified (5) SIRS (systemic inflammatory response syndrome) Current visit: Yes Status: Acute Category: Medical Code(s): R65.10 - Systemic inflammatory response syndrome (SIRS) of non-infectious origin without acute organ dysfunction (6) Tubo-ovarian abscess Current visit: Yes Status: Acute Category: Medical Code(s): N70.93 - Salpingitis and oophoritis, unspecified (7) S/P small bowel resection Current visit: Yes Status: Acute Category: Surgical Code(s): Z90.49 - Acquired absence of other specified parts of digestive tract - Assessment and plan all Dx Assessment and Plan for all problems:: As per Dr. Marcus's note we will continue with fluids. We will continue with her Marinelli catheter for another 24-hour since she did have significant decreased urine output. We will continue with her drain. We will continue with her NG tube for now. She does states she is hungry. I told her she could take more fluids p.o. We will transfer her from stepdown to a regular bed. She will continue to ambulate. We will change her dressing today. She continues to do well. She is afebrile.
[2019-07-23 06:57] LABS: Basophils % 0.2 % (0.1-2.0); Eosinophils % 0.2 % (0.1-12.0); Hemoglobin 8.2 g/dL (12.2-16.2); Lymphocytes # 1.4 K/mm3 (0.7-4.5); Lymphocytes % 7.9 % (10-50); Mean Corpuscular HGB Conc 30.2 g/dL (31.8-35.4); Mean Corpuscular Volume 91.3 fl (81-99); Mean Platelet Volume 8.6 fl (7.4-10.4); Monocytes # 0.7 K/mm3 (0.1-1.0); Monocytes % 3.8 % (1.7-9.3); Neutrophils # 15.1 K/mm3 (1.8-7.8); Neutrophils % 87.9 % (37.0-80.0); Platelet Count 472 K/mm3 (142-424); Red Blood Count 2.96 M/mm3 (4.20-5.40); White Blood Count 17.2 K/mm3 (4.8-10.8)
[2019-07-23 07:01] LABS: Hematocrit 27.1 % (37.0-47.0)
[2019-07-23 07:11] LABS: Anion Gap 13.9 mEq/L (5-15); Calcium 7.6 mg/dL (8.5-10.1)
[2019-07-23 07:18] LABS: Lymphocytes % 10 % (10-50); Neutrophils % 85 % (42-76); Total Cells Counted 100
[2019-07-23 07:19] LABS: Hypochromasia 2+; Rouleaux 1+
--- NOTE | 2019-07-23 08:42 | Progress Note ---
Subjective Patient reports: feels better Narrative: Patient states that she has passed some gas. Urine output is within reasonable limits. She has had extremely large amount of output from the nasogastric tube, greater than 2 L over the past shift. Patient asks to have the nasogastric tube removed. Exam Vital signs and Labs for Last 24 Hours: Temp Pulse Resp BP Pulse Ox 98.4 F 101 H 18 128/75 94 L 07/23/19 07:30 07/23/19 07:30 07/23/19 07:30 07/23/19 07:30 07/23/19 04:00 Laboratory Results - last 24 hr 07/23/19 06:13: WBC 17.2 H, RBC 2.96 L, Hgb 8.2 L, Hct 27.1 L, MCV 91.3, MCH 27.6, MCHC 30.2 L, RDW 14.0, Plt Count 472 H, MPV 8.6, Neut % (Auto) 87.9 H, Lymph % (Auto) 7.9 L, [place] % (Auto) 3.8, Eos % (Auto) 0.2, Baso % (Auto) 0.2, Neut # (Auto) 15.1 H, Lymph # (Auto) 1.4, [place] # (Auto) 0.7, Eos # (Auto) 0.0, Baso # (Auto) 0.0, Total Counted 100, Neutrophils % (Manual) 85 H, Band Neutrophils % 5.0, Lymphocytes % (Manual) 10, Platelet Estimate Slight increase, Hypochromasia 2+, Rouleaux 1+ 07/23/19 06:13: Sodium 142, Potassium 3.9, Chloride 104, Carbon Dioxide 28, Anion Gap 13.9, BUN 16 D, Creatinine 0.67 D, Estimated Creat Clear 102, Estimated GFR 103, Est GFR ( Amer) 125 D, Glucose 84, Calcium 7.6 L I & O for Last 24 hours: Intake & Output 07/20/19 07/21/19 07/22/19 07/23/19 11:59 11:59 11:59 11:59 Intake Total 0 / 0 8446 / 8446 4235 / 4235 5932 / 5932 Output Total 2220 / 2220 2505 / 2505 3480 / 3480 Balance 0 / 0 6226 / 6226 1730 / 1730 2452 / 2452 Weight 228 lb 2.008 oz 241 lb 6 oz 241 lb 1 oz 244 lb 3 oz Microbiology Reports for the Last 24 Hours: Microbiology 07/20/19 13:33 Peritoneal Fluid - Peritoneal Gram Stain - Final 07/20/19 13:33 Peritoneal Fluid - Peritoneal Body Fluid Culture - Preliminary 07/19/19 22:50 Vaginal - Vaginal Gram Stain - Final 07/19/19 22:50 Vaginal - Vaginal Genital Culture - Preliminary Escherichia coli 07/19/19 19:37 Urine,Clean Catch Urine Culture - Final Escherichia coli - *Routine Abdominal Exam Present: soft Progress Note: A&P (1) Hypokalemia Status: Acute Current Visit: Yes (2) Obesity Status: Acute Current Visit: Yes (3) PID (acute pelvic inflammatory disease) Status: Acute Current Visit: Yes (4) Peritonitis Status: Acute Current Visit: Yes (5) SIRS (systemic inflammatory response syndrome) Status: Acute Current Visit: Yes (6) Tubo-ovarian abscess Status: Acute Current Visit: Yes (7) S/P small bowel resection Status: Acute Current Visit: Yes Assessment and Plan for All Diagnoses:: Leukocytosis improving. Better urinary output. May be able to remove Marinelli catheter today. Unfortunately, with the high likelihood of potential anastomotic problems due to her hostile abdomen and inflamed tissues with continued very high output from nasogastric tube it would not be advisable to remove this as of yet. I did ask her to decrease the amount of ice chips and will monitor output through today.
--- NOTE | 2019-07-23 10:43 | Progress Note ---
Internal Medicine - PN: Subj *Date: 07/23/19 *Time: 10:42 Exam Vital signs and Labs for Last 24 Hours: Temp Pulse Resp BP Pulse Ox 98.4 F 101 H 18 128/75 94 L 07/23/19 07:30 07/23/19 07:30 07/23/19 07:30 07/23/19 07:30 07/23/19 04:00 Laboratory Results - last 24 hr 07/23/19 06:13: WBC 17.2 H, RBC 2.96 L, Hgb 8.2 L, Hct 27.1 L, MCV 91.3, MCH 27.6, MCHC 30.2 L, RDW 14.0, Plt Count 472 H, MPV 8.6, Neut % (Auto) 87.9 H, Lymph % (Auto) 7.9 L, [place] % (Auto) 3.8, Eos % (Auto) 0.2, Baso % (Auto) 0.2, Neut # (Auto) 15.1 H, Lymph # (Auto) 1.4, [place] # (Auto) 0.7, Eos # (Auto) 0.0, Baso # (Auto) 0.0, Total Counted 100, Neutrophils % (Manual) 85 H, Band Neutrophils % 5.0, Lymphocytes % (Manual) 10, Platelet Estimate Slight increase, Hypochromasia 2+, Rouleaux 1+ 07/23/19 06:13: Sodium 142, Potassium 3.9, Chloride 104, Carbon Dioxide 28, Anion Gap 13.9, BUN 16 D, Creatinine 0.67 D, Estimated Creat Clear 102, Estimated GFR 103, Est GFR ( Amer) 125 D, Glucose 84, Calcium 7.6 L I & O for Last 24 hours: Intake & Output 07/20/19 07/21/19 07/22/19 07/23/19 23:59 23:59 23:59 23:59 Intake Total 4865 / 4865 5433 / 5433 5727 / 5727 2588 / 2588 Output Total 1220 / 1260 1670 / 1685 2665 / 2665 3275 / 3275 Balance 3645 / 3605 3763 / 3748 3062 / 3062 -687 / -687 Weight 103.476 kg 109.486 kg 109.344 kg 110.762 kg Microbiology Reports for the Last 24 Hours: Microbiology 07/20/19 13:33 Peritoneal Fluid - Peritoneal Gram Stain - Final 07/20/19 13:33 Peritoneal Fluid - Peritoneal Body Fluid Culture - Preliminary Assessment and Plan (1) Hypokalemia Current visit: Yes Status: Acute Category: Medical Code(s): E87.6 - Hypokalemia (2) Obesity Current visit: Yes Status: Acute Qualifiers: Obesity type: due to excess calories Obesity classification: adult class 2 (BMI 35 - 39.9) Serious obesity comorbidity presence: with serious comorbidity Body mass index: BMI 38.0-38.9 Qualified Code(s): E66.01 - Morbid (severe) obesity due to excess calories; Z68.38 - Body mass index (BMI) 38.0-38.9, adult Category: Medical Code(s): E66.9 - Obesity, unspecified (3) PID (acute pelvic inflammatory disease) Current visit: Yes Status: Acute Category: Medical Code(s): N73.0 - Acute parametritis and pelvic cellulitis (4) Peritonitis Current visit: Yes Status: Acute Category: Medical Code(s): K65.9 - Peritonitis, unspecified (5) SIRS (systemic inflammatory response syndrome) Current visit: Yes Status: Acute Category: Medical Code(s): R65.10 - Systemic inflammatory response syndrome (SIRS) of non-infectious origin without acute organ dysfunction (6) Tubo-ovarian abscess Current visit: Yes Status: Acute Category: Medical Code(s): N70.93 - Salpingitis and oophoritis, unspecified (7) S/P small bowel resection Current visit: Yes Status: Acute Category: Surgical Code(s): Z90.49 - Acquired absence of other specified parts of digestive tract The patient's infection will respond to the chosen ABx?: Yes Is the patient receiving the right drug, dose, and route?: Yes Could a more targeted ABx be ordered?: No
--- NOTE | 2019-07-23 12:48 | Progress Note ---
Internal Medicine - PN: Subj *Date: 07/23/19 *Time: 12:44 Interval history: She seems to be doing a little better today. Her pain is well controlled. Her white counts have decreased. Her electrolytes are normal. Her BUN and creatinine have normalized. She does however have increased output through her NG. It is bile colored. She continues to have good urine output today. Exam Vital signs and Labs for Last 24 Hours: Temp Pulse Resp BP Pulse Ox 98.4 F 101 H 18 128/75 94 L 07/23/19 07:30 07/23/19 07:30 07/23/19 07:30 07/23/19 07:30 07/23/19 04:00 Laboratory Results - last 24 hr 07/23/19 06:13: WBC 17.2 H, RBC 2.96 L, Hgb 8.2 L, Hct 27.1 L, MCV 91.3, MCH 27.6, MCHC 30.2 L, RDW 14.0, Plt Count 472 H, MPV 8.6, Neut % (Auto) 87.9 H, Lymph % (Auto) 7.9 L, [place] % (Auto) 3.8, Eos % (Auto) 0.2, Baso % (Auto) 0.2, Neut # (Auto) 15.1 H, Lymph # (Auto) 1.4, [place] # (Auto) 0.7, Eos # (Auto) 0.0, Baso # (Auto) 0.0, Total Counted 100, Neutrophils % (Manual) 85 H, Band [place] trophils % 5.0, Lymphocytes % (Manual) 10, Platelet Estimate Slight increase, Hypochromasia 2+, Rouleaux 1+ 07/23/19 06:13: Sodium 142, Potassium 3.9, Chloride 104, Carbon Dioxide 28, Anion Gap 13.9, BUN 16 D, Creatinine 0.67 D, Estimated Creat Clear 102, Estimated GFR 103, Est GFR ( Amer) 125 D, Glucose 84, Calcium 7.6 L I & O for Last 24 hours: Intake & Output 07/21/19 07/22/19 07/23/19 07/24/19 11:59 11:59 11:59 11:59 Intake Total 8446 / 8446 4235 / 4235 5932 / 5932 Output Total 2220 / 2220 2505 / 2505 4105 / 4105 Balance 6226 / 6226 1730 / 1730 1827 / 1827 Weight 241 lb 6 oz 241 lb 1 oz 244 lb 3 oz Microbiology Reports for the Last 24 Hours: Microbiology 07/20/19 13:33 Peritoneal Fluid - Peritoneal Gram Stain - Final 07/20/19 13:33 Peritoneal Fluid - Peritoneal Body Fluid Culture - Preliminary - Constitutional no acute distress - *Routine HEENT Exam Head: Present: normocephalic Eye: Present: EOMI, PERRL ENT: Present: mucous membranes moist - *Routine Neck Exam Present: supple, full ROM - *Routine Respiratory Exam Absent: accessory muscle use (good air entry bilaterally), wheezes, crackles Comments: Good air entry bilaterally. - *Routine Cardiovascular Exam Present: RRR. Absent: murmur - *Routine Abdominal Exam Present: soft, normoactive bowel sounds. Absent: tenderness, rebound, guarding, mass Comments: Her incision is clean and dry. - *Routine Extremities Exam Present: full ROM. Absent: cyanosis, edema, calf tenderness Assessment and Plan (1) Hypokalemia Current visit: Yes Status: Acute Category: Medical Code(s): E87.6 - Hypokalemia (2) Obesity Current visit: Yes Status: Acute Qualifiers: Obesity type: due to excess calories Obesity classification: adult class 2 (BMI 35 - 39.9) Serious obesity comorbidity presence: with serious comorbidity Body mass index: BMI 38.0-38.9 Qualified Code(s): E66.01 - Morbid (severe) obesity due to excess calories; Z68.38 - Body mass index (BMI) 38.0-38.9, adult Category: Medical Code(s): E66.9 - Obesity, unspecified (3) PID (acute pelvic inflammatory disease) Current visit: Yes Status: Acute Category: Medical Code(s): N73.0 - Acute parametritis and pelvic cellulitis (4) Peritonitis Current visit: Yes Status: Acute Category: Medical Code(s): K65.9 - Peritonitis, unspecified (5) SIRS (systemic inflammatory response syndrome) Current visit: Yes Status: Acute Category: Medical Code(s): R65.10 - Systemic inflammatory response syndrome (SIRS) of non-infectious origin without acute organ dysfunction (6) Tubo-ovarian abscess Current visit: Yes Status: Acute Category: Medical Code(s): N70.93 - Salpingitis and oophoritis, unspecified (7) S/P small bowel resection Current visit: Yes Status: Acute Category: Surgical Code(s): Z90.49 - Acquired absence of other specified parts of digestive tract - Assessment and plan all Dx Assessment and Plan for all problems:: She is improving and we will discontinue her Marinelli today. She does have increased drainage from her NG tube. She would like this added but we are concerned about a possible bowel obstruction given the extreme infection she had in her pelvis. We will continue with her IV fluids. We will continue with the NG tube. We will repeat her blood work in the morning. We will continue observation.
[2019-07-24 06:18] LABS: Basophils % 0.2 % (0.1-2.0); Eosinophils # 0.1 K/mm3 (0.0-0.4); Eosinophils % 0.5 % (0.1-12.0); Hematocrit 27.7 % (37.0-47.0); Hemoglobin 8.6 g/dL (12.2-16.2); Lymphocytes # 1.6 K/mm3 (0.7-4.5); Lymphocytes % 10.1 % (10-50); Mean Corpuscular HGB Conc 30.9 g/dL (31.8-35.4); Mean Corpuscular Volume 90.3 fl (81-99); Monocytes # 0.8 K/mm3 (0.1-1.0); Monocytes % 5.3 % (1.7-9.3); Neutrophils # 13.1 K/mm3 (1.8-7.8); Neutrophils % 83.8 % (37.0-80.0); Platelet Count 504 K/mm3 (142-424); Red Blood Count 3.07 M/mm3 (4.20-5.40); White Blood Count 15.6 K/mm3 (4.8-10.8)
[2019-07-24 06:24] LABS: Anion Gap 12.1 mEq/L (5-15); Calcium 7.8 mg/dL (8.5-10.1)
[2019-07-24 07:02] LABS: Lymphocytes % 13 % (10-50); Monocytes % 4 % (2-9); Neutrophils % 83 % (42-76); Total Cells Counted 100
[2019-07-24 07:03] LABS: Hypochromasia 1+
--- NOTE | 2019-07-24 07:55 | Progress Note ---
Subjective Patient reports: feels better Narrative: Patient states that she feels "great". Had 3 loose stools. Extremely high NG output over past 24 hours. Exam Vital signs and Labs for Last 24 Hours: Temp Pulse Resp BP Pulse Ox 99.2 F 101 H 18 150/83 H 97 07/24/19 04:00 07/24/19 04:00 07/24/19 04:00 07/24/19 04:00 07/24/19 04:00 Laboratory Results - last 24 hr 07/24/19 05:48: WBC 15.6 H, RBC 3.07 L, Hgb 8.6 L, Hct 27.7 L, MCV 90.3, MCH 27.9, MCHC 30.9 L, RDW 14.0, Plt Count 504 H, MPV 9.0, Neut % (Auto) 83.8 H, Lymph % (Auto) 10.1, [place] % (Auto) 5.3, Eos % (Auto) 0.5, Baso % (Auto) 0.2, Neut # (Auto) 13.1 H, Lymph # (Auto) 1.6, [place] # (Auto) 0.8, Eos # (Auto) 0.1, Baso # (Auto) 0.0, Total Counted 100, Neutrophils % (Manual) 83 H, Lymphocytes % (Manual) 13, Monocytes % (Manual) 4, Platelet Estimate Slight increase, Hypochromasia 1+ 07/24/19 05:48: Sodium 142, Potassium 4.1, Chloride 107, Carbon Dioxide 27, Anion Gap 12.1, BUN 14, Creatinine 0.68, Estimated Creat Clear 100, Estimated GFR 102, Est GFR ( Amer) 123, Glucose 83, Calcium 7.8 L I & O for Last 24 hours: Intake & Output 07/21/19 07/22/19 07/23/19 07/24/19 11:59 11:59 11:59 11:59 Intake Total 8446 / 8446 4235 / 4235 5932 / 5932 5746 / 5746 Output Total 2220 / 2220 2505 / 2505 4105 / 4105 4175 / 4175 Balance 6226 / 6226 1730 / 1730 1827 / 1827 1571 / 1571 Weight 241 lb 6 oz 241 lb 1 oz 244 lb 3 oz 248 lb 3.014 oz Microbiology Reports for the Last 24 Hours: Microbiology 07/20/19 13:33 Peritoneal Fluid - Peritoneal Gram Stain - Final 07/20/19 13:33 Peritoneal Fluid - Peritoneal Body Fluid Culture - Preliminary - *Routine Abdominal Exam Present: soft Progress Note: A&P (1) Hypokalemia Status: Acute Current Visit: Yes (2) Obesity Status: Acute Current Visit: Yes (3) PID (acute pelvic inflammatory disease) Status: Acute Current Visit: Yes (4) Peritonitis Status: Acute Current Visit: Yes (5) SIRS (systemic inflammatory response syndrome) Status: Acute Current Visit: Yes (6) Tubo-ovarian abscess Status: Acute Current Visit: Yes (7) S/P small bowel resection Status: Acute Current Visit: Yes Assessment and Plan for All Diagnoses:: With high NG output concern for possible obstruction. However, NG output improved somewhat since midnight since NPO. Will check gastrograffin study today to evaluate for obstruction. Could require repeat laparotomy with extended resection and possible ileostomy.
--- NOTE | 2019-07-24 14:24 | Progress Note ---
Internal Medicine - PN: Subj *Date: 07/24/19 *Time: 14:19 Interval history: She is doing much better today. She is afebrile. She denies any chest pain, shortness of breath or calf tenderness. Her white count has gone down to 15.6. All of her electrolytes are normal. Her hemoglobin has slightly improved. We are awaiting a Gastrografin study of her small bowel and colon. She has had 4 bowel movements today. She had a large bowel movement yesterday as well. She denies any nausea or vomiting. Exam Vital signs and Labs for Last 24 Hours: Temp Pulse Resp BP Pulse Ox 98.6 F 107 H 18 150/92 H 97 07/24/19 08:00 07/24/19 08:00 07/24/19 11:53 07/24/19 08:00 07/24/19 08:00 Laboratory Results - last 24 hr 07/24/19 05:48: WBC 15.6 H, RBC 3.07 L, Hgb 8.6 L, Hct 27.7 L, MCV 90.3, MCH 27.9, MCHC 30.9 L, RDW 14.0, Plt Count 504 H, MPV 9.0, Neut % (Auto) 83.8 H, Lymph % (Auto) 10.1, [place] % (Auto) 5.3, Eos % (Auto) 0.5, Baso % (Auto) 0.2, Neut # (Auto) 13.1 H, Lymph # (Auto) 1.6, [place] # (Auto) 0.8, Eos # (Auto) 0.1, Baso # (Auto) 0.0, Total Counted 100, Neutrophils % (Manual) 83 H, Lymphocytes % (Manual) 13, Monocytes % (Manual) 4, Platelet Estimate Slight increase, Hypochromasia 1+ 07/24/19 05:48: Sodium 142, Potassium 4.1, Chloride 107, Carbon Dioxide 27, Anion Gap 12.1, BUN 14, Creatinine 0.68, Estimated Creat Clear 100, Estimated GFR 102, Est GFR ( Amer) 123, Glucose 83, Calcium 7.8 L I & O for Last 24 hours: Intake & Output 07/22/19 07/23/19 07/24/19 07/25/19 11:59 11:59 11:59 11:59 Intake Total 4235 / 4235 5932 / 5932 5746 / 5746 Output Total 2505 / 2505 4105 / 4105 4175 / 4175 450 / 450 Balance 1730 / 1730 1827 / 1827 1571 / 1571 -450 / -450 Weight 241 lb 1 oz 244 lb 3 oz 248 lb 3.014 oz 249 lb 1.957 oz Microbiology Reports for the Last 24 Hours: Microbiology 07/20/19 13:33 Peritoneal Fluid - Peritoneal Gram Stain - Final 07/20/19 13:33 Peritoneal Fluid - Peritoneal Body Fluid Culture - Preliminary Gram Positive Cocci 07/19/19 22:50 Vaginal - Vaginal Gram Stain - Final 07/19/19 22:50 Vaginal - Vaginal Genital Culture - Final Escherichia coli - *Routine HEENT Exam Head: Present: normocephalic Eye: Present: EOMI, PERRL ENT: Present: mucous membranes moist - *Routine Neck Exam Present: supple, full ROM - *Routine Respiratory Exam Absent: accessory muscle use (good air entry bilaterally), wheezes, crackles - *Routine Cardiovascular Exam Present: RRR. Absent: murmur - *Routine Abdominal Exam Present: soft, normoactive bowel sounds. Absent: tenderness, rebound, guarding, mass Comments: Her incision is clean and dry. - *Routine Extremities Exam Present: full ROM. Absent: cyanosis, edema, calf tenderness Assessment and Plan (1) Hypokalemia Current visit: Yes Status: Acute Category: Medical Code(s): E87.6 - Hypokalemia (2) Obesity Current visit: Yes Status: Acute Qualifiers: Obesity type: due to excess calories Obesity classification: adult class 2 (BMI 35 - 39.9) Serious obesity comorbidity presence: with serious comorbidity Body mass index: BMI 38.0-38.9 Qualified Code(s): E66.01 - Morbid (severe) obesity due to excess calories; Z68.38 - Body mass index (BMI) 38.0-38.9, adult Category: Medical Code(s): E66.9 - Obesity, unspecified (3) PID (acute pelvic inflammatory disease) Current visit: Yes Status: Acute Category: Medical Code(s): N73.0 - Acute parametritis and pelvic cellulitis (4) Peritonitis Current visit: Yes Status: Acute Category: Medical Code(s): K65.9 - Peritonitis, unspecified (5) SIRS (systemic inflammatory response syndrome) Current visit: Yes Status: Acute Category: Medical Code(s): R65.10 - Systemic inflammatory response syndrome (SIRS) of non-infectious origin without acute organ dysfunction (6) Tubo-ovarian abscess Current visit: Yes Status: Acute Category: Medical Code(s): N70.93 - Salpingitis and oophoritis, unspecified (7) S/P small bowel resection Current visit: Yes Status: Acute Category: Surgical Code(s): Z90.49 - Acquired absence of other specified parts of digestive tract - Assessment and plan all Dx Assessment and Plan for all problems:: We are awaiting the results of her Gastrografin study. I did a preliminary look with the radiologist and it looks like her Gastrografin is passing through the anastomosis and into her large bowel. We are waiting 1 more picture. If she is doing well with this then we will go ahead and DC her NG tube. We will likely keep the CHAN drain for another day or so. Her incision is clean and dry. Her pain is much improved. We may consider sending her home in the next 24 to 48 hours.
--- NOTE | 2019-07-25 08:17 | Progress Note ---
Subjective Patient reports: feels better, flatus, bowel movement Narrative: NG out yesterday. She states that she has been "drinking quite of bit of liquids". She states that she is "hungry and want(s) to go home". Exam Vital signs and Labs for Last 24 Hours: Temp Pulse Resp BP Pulse Ox 99.2 F 98 H 16 158/86 H 97 07/25/19 07:48 07/25/19 07:48 07/25/19 07:48 07/25/19 07:48 07/25/19 07:48 I & O for Last 24 hours: Intake & Output 07/22/19 07/23/19 07/24/19 07/25/19 11:59 11:59 11:59 11:59 Intake Total 4235 / 4235 5932 / 5932 5746 / 5746 4091 / 4091 Output Total 2505 / 2505 4105 / 4105 4175 / 4175 1025 / 1025 Balance 1730 / 1730 1827 / 1827 1571 / 1571 3066 / 3066 Weight 241 lb 1 oz 244 lb 3 oz 248 lb 3.014 oz 249 lb 1.957 oz Microbiology Reports for the Last 24 Hours: Microbiology 07/20/19 13:33 Peritoneal Fluid - Peritoneal Gram Stain - Final 07/20/19 13:33 Peritoneal Fluid - Peritoneal Body Fluid Culture - Preliminary Gram Positive Cocci 07/19/19 21:22 Blood Blood Culture - Final NO GROWTH AFTER 5 DAYS 07/19/19 21:22 Blood Blood Culture - Final NO GROWTH AFTER 5 DAYS 07/19/19 22:50 Vaginal - Vaginal Gram Stain - Final 07/19/19 22:50 Vaginal - Vaginal Genital Culture - Final Escherichia coli - Constitutional no acute distress - *Routine Respiratory Exam Absent: respiratory distress Progress Note: A&P (1) Hypokalemia Status: Acute Current Visit: Yes (2) Obesity Status: Acute Current Visit: Yes (3) PID (acute pelvic inflammatory disease) Status: Acute Current Visit: Yes (4) Peritonitis Status: Acute Current Visit: Yes (5) SIRS (systemic inflammatory response syndrome) Status: Acute Current Visit: Yes (6) Tubo-ovarian abscess Status: Acute Current Visit: Yes (7) S/P small bowel resection Status: Acute Assessment and plan: no obvious leak or stricture noted on SBFT yesterday...tolerating "unknown" quantity of clear liquids. full liquid diet continue serial exams keep CHAN for now...likely D/C if output remains low after diet advanced Current Visit: Yes
--- NOTE | 2019-07-26 08:19 | Progress Note ---
Subjective Patient reports: no new complaints Exam Vital signs and Labs for Last 24 Hours: Temp Pulse Resp BP Pulse Ox 98.1 F 102 H 18 152/82 H 95 07/26/19 07:55 07/26/19 07:55 07/26/19 07:55 07/26/19 07:55 07/26/19 07:55 I & O for Last 24 hours: Intake & Output 07/23/19 07/24/19 07/25/19 07/26/19 11:59 11:59 11:59 11:59 Intake Total 5932 / 5932 5746 / 5746 4211 / 4211 3887 / 3887 Output Total 4105 / 4105 4175 / 4175 1025 / 1025 1999 / 1999 Balance 1827 / 1827 1571 / 1571 3186 / 3186 1887 / 1887 Weight 244 lb 3 oz 248 lb 3.014 oz 249 lb 1.957 oz 265 lb 6.4 oz Microbiology Reports for the Last 24 Hours: Microbiology 07/20/19 13:33 Peritoneal Fluid - Peritoneal Gram Stain - Final 07/20/19 13:33 Peritoneal Fluid - Peritoneal Body Fluid Culture - Preliminary Gram Positive Cocci - Constitutional no acute distress - *Routine Respiratory Exam Absent: respiratory distress - *Routine Cardiovascular Exam Present: RRR - *Routine Abdominal Exam Present: soft Progress Note: A&P (1) Hypokalemia Status: Acute Current Visit: Yes (2) Obesity Status: Acute Current Visit: Yes (3) PID (acute pelvic inflammatory disease) Status: Acute Current Visit: Yes (4) Peritonitis Status: Acute Current Visit: Yes (5) SIRS (systemic inflammatory response syndrome) Status: Acute Current Visit: Yes (6) Tubo-ovarian abscess Status: Acute Current Visit: Yes (7) S/P small bowel resection Status: Acute Assessment and plan: Overall, continuing to convalesce well status post laparotomy/washout/partial small bowel resection. Okay from surgical standpoint for discharge home with close outpatient follow- up. Final decision on discharge timing/planning deferred to primary service. Complete course of antibiotics as outpatient. Very slowly advance diet to "soft" over the next few days. Current Visit: Yes
--- NOTE | 2019-07-26 09:15 | Discharge Summary ---
General - General Admission date:: 07/20/19 Discharge date: 07/26/19 HPI HPI: She is a 29-year-old lady who has a copper IUD in place. She has a 1 week history of lower abdominal pain. She says it is mostly on the left side. She had a fever 1 day she said. She had increasing lower abdominal pain as result of that she came to the ER. CT scan shows multiple loculated areas consistent with tubo-ovarian abscess. There is also significant free fluid possibly related to the inflammation related to this. She denies any new partners. She is . She says that her has had no new partners. She is a smoker and smokes a pack a day. She does not take any medications. Hospital Course Hospital Course: On July she underwent a laparoscopy followed by midline laparotomy. At the time there were extensive adhesions of bowel and omentum. There were at least 2 pus filled abscesses with a possible other abscess that drained upon entering the abdominal cavity. One abscess was located in the right adnexa and a second abscess was located in the deep pelvis anterior to the rectum and posterior to the cervix. During the surgery it was noted that she had a small rent in her small bowel after having dissected these off the pelvic sidewall and anterior abdominal wall with blunt dissection. We resected the small section of bowel. Since that time she has been on IV antibiotics and has not really been taking any pain medicine at all. Over the course of her first couple of days she had decreased urine output and we provided her with extra fluid. We thought this was consistent with her sepsis. Subsequently she began putting out normal amounts of urine and her Marinelli catheter was discontinued. By her third postoperative day she began having increased drainage from her NG tube. It was not clear whether this was from the amount of fluids she was drinking or whether she had a bowel obstruction. We ordered a small bowel follow-through and the anastomosis was seen to be patent and there was good follow-through of Gastrografin on the x-ray. We discontinued her NG tube. As result of that we started her on clear fluids. Over the last day she has started on full fluids. Postoperatively it was noted that she had some mild hypokalemia and she was started on 20 mEq of potassium in her IV fluids. This corrected her hypokalemia. She has remained afebrile throughout her hospitalization post surgery. She used very little pain medicine. We initially started her on Toradol but since she had decreased urine output we thought that this may have been also due to that ketorolac she was getting. This was discontinued. She has only taken a couple of doses of Dilaudid throughout her whole hospitalization. She has a midline incision. We will plan to send her home today on full fluids. She will continue on antibiotics for the next 10 days. We have given her a prescription for Augmentin as well as a few Percocets in case she has increased pain. Her s taples are still in situ. Her NG tube was removed. Her Marinelli catheter is removed. She has a CHAN drain that has been draining minimal amounts of clear fluid. We will leave this in situ for now and she will follow-up with Dr. Dumont early next week to have this removed. I will see her next week to have her bassam removed. Her has been given instructions on how to keep the incision clean with Hibiclens. She was given the usual instructions with respect to limiting her activity, driving and sexual activity. She will continue with her full fluids. She will continue with her Augmentin. She was given a prescription for Percocet 5/325 number 12 tablets. Her condition on discharge is stable and improved. Objective Vital signs: Temp Pulse Resp BP Pulse Ox 98.1 F 102 H 18 152/82 H 95 07/26/19 07:55 07/26/19 07:55 07/26/19 07:55 07/26/19 07:55 07/26/19 07:55 no acute distress - *Routine HEENT Exam Head: Present: normocephalic - *Routine Neck Exam Present: supple - Routine Chest/Breast/Axilla Exam Chest wall: Absent: tenderness - *Routine Respiratory Exam Absent: accessory muscle use, crackles - *Routine Cardiovascular Exam Present: RRR. Absent: murmur - *Routine Abdominal Exam Present: soft Comments: Her incision is clean and dry. [place] are in situ - Detailed Eye Exam Eyelids: Left normal inspection Results Labs on day of discharge: Preliminary micro results at discharge 07/20/19 13:33 Body Fluid Culture - Preliminary Peritoneal Fluid - Peritoneal Gram Positive Cocci DS: Diagnosis - Discharge Diagnosis (1) Hypokalemia Status: Acute (2) Obesity Status: Acute (3) PID (acute pelvic inflammatory disease) Status: Acute (4) Peritonitis Status: Acute (5) SIRS (systemic inflammatory response syndrome) Status: Acute (6) Tubo-ovarian abscess Status: Acute (7) S/P small bowel resection Status: Acute Discharge Plan - Patient Discharge Instructions ACTIVITY: No heavy lifting DIET: other (She will eat a soft diet.) Patient Instructions: Pelvic Inflammatory Disease, Peritonitis, DI for Pelvic Inflammatory Disease, DI for Peritonitis, DI for Abdominal Pain-Adult, DI for Hypokalemia, DI for Surgical Site Infection, Hypokalemia, Acute Abdominal Pain - Follow up Plan Follow up with: Chemo Holden MD [Staff Physician] - 08/09/19 10:15 am Trenton Dumont MD [Staff Physician] - 08/02/19 9:30 am Disposition: Home, Self-Assisted Medications: Home Medications Medication Instructions Recorded Confirmed Type No Known Home Medications 07/19/19 07/19/19 History Oxycodone HCl/Acetaminophen 1 - 2 tab PO Q4-6H PRN #12 tablet 07/26/19 Rx [Percocet 5/325mg tablet] Prescriptions/Medication Reconciliation: New Oxycodone HCl/Acetaminophen [Percocet 5/325mg tablet] 1 - 2 tab PO Q4-6H PRN #12 tablet PRN Reason: Severe Pain No Action No Known Home Medications - Problem Reconciliation Problems Reviewed?: Yes
== END 2019-07-26 10:21 | disposition home or self-care (01) | DRG 742 ==
LOC: ER 19:23 → 2ND 23:23
PROVIDERS: ADMIT Nurse Practitioner Obstetrics & Gynecology; ATTEND Nurse Practitioner Obstetrics & Gynecology
CPT/HCPCS: 36415; 71010; 71045; 74176; 74177; 74245; 74246; 80048; 80053; 81001; 81025; 82150; 82247; 83605; 83690; 85007; 85014; 85018; 85025; 85048; 85049; 85610; 85651; 85730; 86140; 87040; 87070; 87075; 87077; 87086; 87088; 87186; 87205; 87210; 88305; 88307; 93005; 96374; 99285; J0131; J1335; J1956; J2405; Q9967